=== PATIENT | female | born 1965 | race Caucasian/White ===

== ENCOUNTER 2017-01-19 18:38 | Emergency (ER) | payer OTHER ==
[2017-01-19 20:35] LABS: BILIRUBIN,URINE NEGATIVE (NEGATIVE); PH,URINE 5.5 PH (5.0-7.5)
[2017-01-19 20:39] LABS: UA CHARGE (STRIP ONLY) YES; UR CULTURE IF IND NOT INDICATED
--- NOTE | 2017-01-19 21:01 | CT Report ---
EXAM: CT ABDOMEN AND PELVIS (CT KUB) EXAM DATE: 01/19/2017 08:32 PM. CLINICAL HISTORY: Left flank pain. COMPARISONS: None. TECHNIQUE: Routine axial helical CT imaging was performed through the abdomen and pelvis without IV c ontrast. Reconstructions: Coronal and sagittal. In accordance with CT protocol optimization, one or more of the following dose reduction techniques w ere utilized for this exam: automated exposure control, adjustment of mA and/or KV based on patient s ize, or use of iterative reconstructive technique. FINDINGS: Lung Bases: Posterior subcentimeter right lobe low densities, likely cysts. Right Kidney/Ureter: No stones, hydronephrosis, or hydroureter. No perinephric fat stranding. Left Kidney/Ureter: Hydronephrosis due to an obstructing 3 x 5 x 5 mm stone in the upper ureter at th e L4 level. Nonobstructing 2 mm intrarenal stone also noted. Other Solid Organs: Noncontrast images of the solid organs are grossly unremarkable. Gallbladder/Bile Ducts: Unremarkable. Peritoneal Cavity: No free fluid, free air or keiko adenopathy. Bowel is grossly unremarkable. Pelvic Organs: Thin-walled 8.6 x 7.3 x 6.7 cm central pelvic cyst slightly to the right. Otherwise un remarkable Vasculature: Unremarkable. Other: Degenerative disk disease at L2-L3. IMPRESSION: 1. Left hydronephrosis due to an obstructing 3 x 5 x 5 mm stone in the upper ureter at the L4 level. 2. Nonobstructing 2 mm left intrarenal stone. 3. Large pelvic 8.6 x 7.3 x 6.7 cm cyst, likely right ovarian. [facility] Referring Provider Line: [phone] SITE ID: [id number]
--- NOTE | 2017-01-19 21:20 | ED Physician Documentation ---
PD HPI ABD PAIN - Stated complaint Stated Complaint: L FLANK PX - Chief complaint Chief Complaint: Abd Pain - History obtained from History obtained from: Patient - History of Present Illness Timing - onset: How many days ago (5) Timing - details: Waxing and waning Quality: Pain Location: Other (left flank) Worsened by: Eating Associated symptoms: Nausea. No: Fever, Vomiting, Dysuria Similar symptoms before: Has not had sx before - Treatment prior to arrival Treatment prior to arrival: Using a TENS unit helps relieve the pain. - Additional information Additional information: The patient is a 51-year-old female who presents with left flank pain that started 5 days ago and has been waxing and waning since that time. It was sudden in onset and seems worse when eating. At times she can find nothing that helps resolve the pain, but has found that using her TENS unit symptoms helps. She reports associated nausea, but denies vomiting. She denies fever, dysuria, or decreased appetite. She denies history of similar symptoms in the past. Surgical history is significant for hysterectomy. Review of Systems Constitutional: denies: Fever Nose: denies: Congestion Throat: denies: Sore throat Cardiac: denies: Chest pain / pressure Respiratory: denies: Dyspnea, Cough GI: reports: Abdominal Pain. denies: Vomiting, Diarrhea : reports: Hysterectomy. denies: Dysuria Skin: denies: Rash Musculoskeletal: reports: Back pain (left flank). denies: Extremity pain Neurologic: denies: Headache PD PAST MEDICAL HISTORY - Past Medical History Past Medical History: Yes Cardiovascular: None Respiratory: None Neuro: None Endocrine/Autoimmune: None Other Past Medical History: Meniere's disease, ulcerative colitis, - Past Surgical History Past Surgical History: Yes /[employer]: Hysterectomy - Present Medications Home Medications: Ambulatory Orders Medication Instructions Recorded Confirmed Promethazine [Phenergan] 25 - 50 mg PO Q6H PRN #10 tab 01/19/17 oxyCODONE/ACET 5/325 [Percocet 5 1 - 2 tab PO Q4-6H PRN #20 tablet 01/19/17 mg/325 mg] - Allergies Allergies/Adverse Reactions: Allergies Allergy/AdvReac Type Severity Reaction Status Date / Time erythromycin lactobionate * AdvReac Nausea Verified 01/19/17 18:47 [From Erythrocin] - Social History Does the pt smoke?: No Smoking Status: Never smoker Does the pt drink ETOH?: Yes Does the pt have substance abuse?: No Additional Social History: Visiting here from [place], and plans to return in 2 days. PD ED PE NORMAL - Vitals Vital signs reviewed: Yes (initially hypertensive.) - General General: Alert and oriented X 3, Well developed/nourished - HEENT HEENT: Atraumatic - Neck Neck: No adenopathy, No JVD - Cardiac Cardiac: RRR, No murmur - Respiratory Respiratory: No respiratory distress, Clear bilaterally - Abdomen Abdomen: Normal bowel sounds, Soft, Non tender, No organomegaly - Back Back: No spinal TTP, Other (There is left flank tenderness to percussion.) - Derm Derm: No rash - Extremities Extremities: No edema, No calf tenderness / cord - Neuro Neuro: Alert and oriented X 3, No motor deficit, Normal speech Results - Vitals Vitals: Vital Signs - 24 hr 01/19/17 21:58 Temperature 37.3 C Heart Rate 59 L Respiratory 18 Rate Blood Pressure 140/89 H O2 Saturation 100 Oxygen O2 Source Room air - Labs Labs: Laboratory Tests 01/19/17 19:30 Urine Color YELLOW Urine Clarity CLEAR Urine pH 5.5 Ur Specific Castaner 1.010 Urine Protein NEGATIVE Urine Glucose (UA) NEGATIVE Urine Ketones TRACE Urine Occult Blood TRACE-INTA Urine Nitrite NEGATIVE Urine Bilirubin NEGATIVE Urine Urobilinogen 0.2 (NORMAL) Ur Leukocyte Esterase NEGATIVE Ur Microscopic Review NOT INDICATED Urine Culture Comments NOT INDICATED - Rads (name of study) CT abd/pelvis w/o Radiology: Prelim report reviewed, EMP read contemporaneously, See rad report ( 1. Left hydronephrosis to do an obstructing 3 x 5 x 5 mm stone in the upper ureter at the L4 level. 2. Nonobstructing 2 mm left intrarenal stone. 3. Large pelvic 8.6 x 7.3 x 6.7 cm cyst, likely right ovarian. ) PD MEDICAL DECISION MAKING - ED course Complexity details: reviewed results, re-evaluated patient, considered differential, d/w patient, d/w family ED course: The patient's presentation is most consistent with left renal colic, with a 3 x 5 x 5 mm left proximal ureteral stone seen on CT scan. The CT scan also reveals an incidental large right ovarian cyst. Urinalysis reveals no evidence of urinary infection, and the patient's presentation does not suggest pyelonephritis, or dehydration. I discussed with her and her the results of the CT scan, importance of urology follow-up, as well as potentially worrisome signs or symptoms that should prompt reevaluation in the emergency department. Prepacks of Percocet and Zofran were dispensed. A DVD copy of her imaging study was given to her to take to her follow-up physician. She is being discharged with prescriptions for Percocet and Phenergan. Departure - Departure Disposition: 01 Home, Self Care Clinical Impression: Renal colic on left side, Left ureteral stone, Right ovarian cyst Condition: Stable Instructions: ED Stone Renal W Colic Prescriptions: oxyCODONE/ACET 5/325 [Percocet 5 mg/325 mg] 1 - 2 tab PO Q4-6H PRN #20 tablet PRN Reason: Pain Promethazine [Phenergan] 25 - 50 mg PO Q6H PRN #10 tab PRN Reason: Nausea / Vomiting Comments: 1. Drink plenty of fluids. 2. You can use Percocet as prescribed if needed for pain. 3. You can use Phenergan as prescribed if needed for nausea. 4. You can also use ibuprofen, up to 600 mg 3 times daily for its anti- inflammatory effect. 5. Follow up with your primary physician, and ask for referral to urology. 6. Return to the emergency department if you develop increasing pain, persistent vomiting, fever, or otherwise worsening symptoms. Discharge Date/Time: 01/19/17 22:02
[2017-01-19] MEDS ORDERED: ONDANSETRON ODT 4 MG Prepack 2 TL PRN (21:28)
[2017-01-19] MEDS ORDERED: oxyCODONE/ACET 5/325 Prepack 4 PO STA (21:28)
[2017-01-19] MEDS ORDERED: ONDANSETRON ODT 4 MG Prepack 2 TL ONE (21:47)
[2017-01-19] MEDS ORDERED: oxyCODONE/ACET 5/325 Prepack 4 PO ONE (21:47)
[2017-01-19 21:59] VITALS: BP 140/89
== END 2017-01-19 22:02 | disposition home or self-care (01) ==
LOC: ED 18:38
DX: N13.2 Hydronephrosis with renal and ureteral calculous obstruction (principal); N83.201 Unspecified ovarian cyst, right side
CPT/HCPCS: 74176; 81001; 81003; 87086; 99283; 99284